=== PATIENT | female | born 1960 ===

== ENCOUNTER 2017-05-09 14:38 | Emergency (ER) | payer BC ==
--- NOTE | 2017-05-09 15:14 | UC ---
Skin Complaint HPI - HPI Summary HPI Summary: 56 YEAR OLD FEMALE PRESENTS WITH COMPLAINS OF RIGHT PAINFUL FACIAL RASH. - History of Current Complaint Time Seen by Provider: 05/09/17 15:07 Stated Complaint: SKIN COMPLAINT Hx Obtained From: Patient Onset/Duration: Sudden Onset Skin Exposure Onset/Duration: Hours Ago Onset Severity: Moderate Current Severity: Moderate Pain Scale Used: 0-10 Numeric - 7 Location: Discrete, Face Character: Redness, Raised, Painful Aggravating: Nothing Alleviating: Nothing Associated Signs & Symptoms: Positive: Negative - Allergy/Home Medications Allergies/Adverse Reactions: Allergies Allergy/AdvReac Type Severity Reaction Status Date / Time No Known Allergies Allergy Verified 05/09/17 15:20 Review of Systems Constitutional: Negative Skin: Rash - RIGHT FACIAL Eyes: Negative ENT: Negative Respiratory: Negative Cardiovascular: Negative Gastrointestinal: Negative Genitourinary: Negative Motor: Negative Neurovascular: Negative Musculoskeletal: Negative Neurological: Negative Psychological: Negative All Other Systems Reviewed And Are Negative: Yes PMH/Surg Hx/FS Hx/Imm Hx Previously Healthy: Yes - Family History Known Family History: Positive: None Physical Exam Triage Information Reviewed: Yes Eye Exam: Normal ENT Exam: Normal Dental Exam: Normal Neck exam: Normal Neck: Positive: 1 Respiratory Exam: Normal Cardiovascular Exam: Normal Abdominal Exam: Normal Musculoskeletal Exam: Normal Neurological Exam: Normal Psychological Exam: Normal Skin: Positive: rashes - RIGHT FACIAL Course/Dx - Diagnoses Provider Diagnoses: RIGHT PAINFUL FACIAL RASH Discharge - Discharge Plan Condition: Stable Disposition: HOME Prescriptions: Acyclovir [Zovirax 800 MG] 800 mg PO Q6H #35 tab Capsaicin 0.025% CREAM* [Zostrix 0.025% CREAM*] 1 applic TOPICAL BID #1 tube predniSONE TAB* [Deltasone TAB*] 40 mg PO DAILY #10 tab Patient Education Materials: Shingles (ED) Referrals: Non Staff,Doctor [Primary Care Provider] -
[2017-05-09 15:28] VITALS: BP 106/68
== END 2017-05-09 15:30 | disposition home or self-care (01) ==
LOC: UCCORT 14:38
DX: R21 Rash and other nonspecific skin eruption (principal)
CPT/HCPCS: 99202; G0463